=== PATIENT | male | born 1990 | race African-American/Black ===

== ENCOUNTER 2024-08-13 11:48 | Emergency (ER) | payer MEDICAID ==
[~2024-08-13] VITALS: Ht 180.3 cm; Wt 85.0 kg
[2024-08-13 11:50] VITALS: O2SAT 99
[2024-08-13 11:52] VITALS: TEMP 98.5; O2SAT 95
[2024-08-13 13:07] VITALS: BP 142/71; PULSE 86; RESP 18
[2024-08-13] MEDS: HYDROCODONE/ACETAMINOPHEN 5/325MG TABLET PO NR (13:07)
== END 2024-08-13 15:00 | disposition home or self-care (01) ==
LOC: ER 11:59
DX: M79.18 Myalgia, other site (principal); F12.90 Cannabis use, unspecified, uncomplicated; V03.10XA Pedestrian on foot injured in collision with car, pick-up truck or van in traffic accident, initial encounter; Y93.9 Activity, unspecified; Y92.410 Unspecified street and highway as the place of occurrence of the external cause; Y99.8 Other external cause status
CPT/HCPCS: 71045; 73030; 73070; 73110; 74176; 99284